=== PATIENT | female | born 1995 | race Caucasian/White ===

== ENCOUNTER → 2019-12-09 | Outpatient (CLI) | payer BC, MEDICAID ==
--- NOTE | 2019-12-09 15:48 | RAD ---
PROCEDURE: FOOT RIGHT 3V STUDY DATE: 12/09/2019 CLINICAL INDICATION / HISTORY: Reason: DROPPED A DRUM ON RIGHT FOOT, PAIN AND SWELLING / Spl. Instructions: / History: . TECHNIQUE: AP, lateral and oblique views of the right foot. COMPARISON: None FINDINGS: No fracture or dislocation is identified. The bone density is normal. The joint space widths are maintained, and there are no erosions to suggest an inflammatory arthropathy. Mild dorsal forefoot soft tissue swelling is seen. IMPRESSION: Mild dorsal forefoot soft tissue swelling but no associated acute osseous abnormality. Electronically signed by: Ray Cabezas MD (12/09/2019 3:46 PM) [id number]
== END | disposition home or self-care (01) ==
LOC: DXRAD 14:48
PROVIDERS: ATTEND Physician Assistant
DX: M19.071 Primary osteoarthritis, right ankle and foot (principal)
CPT/HCPCS: 73630